=== PATIENT | female | born 1995 | race African-American/Black ===

== ENCOUNTER 2018-08-06 09:08 | Emergency (ER) | payer SELFPAY ==
[~2018-08-06] VITALS: Ht 149.9 cm; Wt 85.0 kg
[2018-08-06 09:55] VITALS: BP 128/63
== END 2018-08-06 10:37 | disposition home or self-care (01) ==
LOC: ER 09:21
DX: S05.12XA Contusion of eyeball and orbital tissues, left eye, initial encounter (principal); J45.909 Unspecified asthma, uncomplicated; F12.10 Cannabis abuse, uncomplicated; Y08.89XA Assault by other specified means, initial encounter; Y93.89 Activity, other specified; Y92.89 Other specified places as the place of occurrence of the external cause; Y99.8 Other external cause status
CPT/HCPCS: 81025; 99282

== ENCOUNTER 2020-07-07 19:58 | Inpatient (IN) | payer MEDICAID ==
[~2020-07-07] VITALS: Ht 144.8 cm; Wt 80.7 kg
[2020-07-07 21:26] LABS: CLARITY URINE CLEAR (CLEAR); COLOR URINE YELLOW (YELLOW); KETONES URINE 1+ (NEGATIVE); LEUKOCYTE ESTERASE URINE NEGATIVE (NEGATIVE); NITRITE URINE NEGATIVE (NEGATIVE); OCCULT BLOOD URINE 1+ (NEGATIVE); PROTEIN URINE NEGATIVE (NEGATIVE); SPECIFIC GRAVITY URINE 1.026 (1.005-1.030)
[2020-07-07 21:27] LABS: BASOPHILS % 0.2 % (0.0-2.0); EOSINOPHILS % 0.1 % (0.0-5.0); HEMATOCRIT. 35.9 % (36.0-48.0); HEMOGLOBIN. 12.1 g/dL (12.0-16.0); LYMPHOCYTES % 16.9 % (20.0-50.0); MEAN CORPUSCULAR HEMOGLOBIN 26.4 pg (28.0-32.0); MEAN CORPUSCULAR VOLUME 78.2 fL (81.0-99.0); MEAN PLATELET VOLUME 8.2 fl (7.4-10.4); MONOCYTES % 5.6 % (2.0-8.0); NEUTROPHILS % 77.2 % (40.0-76.0); PLATELET 240 x1000/uL (130-400); RED CELL DISTRIBUTION WIDTH 14.2 % (11.6-14.6)
[2020-07-07 23:55] LABS: *AMPHETAMINES SCREEN URINE NEGATIVE (NEGATIVE); *BARBITURATES SCREEN URINE NEGATIVE (NEGATIVE); *BENZODIAZEPINES SCREEN URINE NEGATIVE (NEGATIVE); *COCAINE SCREEN URINE NEGATIVE (NEGATIVE); METHADONE URINE SCREEN NEGATIVE (NEGATIVE)
[2020-07-07 23:56] LABS: OPIATES URINE SCREEN NEGATIVE (NEGATIVE); PHENCYCLIDINE URINE SCREEN NEGATIVE (NEGATIVE)
[2020-07-07 23:59] LABS: CANNABINOID URINE SCREEN PRESUMTIVE POSITIVE (NEGATIVE)
[2020-07-08] MEDS: LACTATED RINGERS 1,000 ML IV SCH ×2 (00:52→07:30)
[2020-07-08] MEDS ORDERED: PREN1TAB78 PO (01:01)
[2020-07-08 01:24] LABS: PARTIAL THROMBOPLASTIN TIME 29.1 sec (23.4-31.0); PROTHROMBIN TIME 10.3 sec (9.6-11.0)
[2020-07-08 01:37] LABS: HEPATITIS B SURFACE ANTIGEN NEGATIVE
[2020-07-08 09:15] LABS: BASOPHILS % 0.4 % (0.0-2.0); EOSINOPHILS % 0.2 % (0.0-5.0); HEMOGLOBIN. 11.4 g/dL (12.0-16.0); LYMPHOCYTES % 15.4 % (20.0-50.0); MEAN CORPUSCULAR HEMOGLOBIN 26.5 pg (28.0-32.0); MEAN CORPUSCULAR VOLUME 79.1 fL (81.0-99.0); MEAN PLATELET VOLUME 8.2 fl (7.4-10.4); MONOCYTES % 6.5 % (2.0-8.0); NEUTROPHILS % 77.5 % (40.0-76.0); PLATELET 226 x1000/uL (130-400); RED CELL DISTRIBUTION WIDTH 14.4 % (11.6-14.6)
[2020-07-08] MEDS ORDERED: BUTORPHANOL TARTRATE 2 MG/ML VIAL IV PRN (15:45)
[2020-07-08] MEDS: MISOPROSTOL 200MCG TABLET PO SCH (16:29)
[2020-07-08] MEDS ORDERED: DEXT 5%/LR + PITOCIN 20UNITS/L 1,000 ML IV ONE ×2 (18:15→18:39)
[2020-07-08] MEDS ORDERED: ONDANSETRON HCL 4MG/2ML INJ IV PRN (18:45)
[2020-07-08] MEDS ORDERED: IBUPROFEN 600MG TABLET PO PRN (18:45)
[2020-07-08] MEDS ORDERED: ACETAMINOPHEN 650MG SUPP PR PRN (18:45)
[2020-07-08] MEDS ORDERED: DEXT 5%/LR + PITOCIN 20UNITS/L 1,000 ML IV SCH (19:30)
[2020-07-09] VITALS: BP 108/64
[2020-07-09 00:19] VITALS: BP 108/64
[2020-07-09] MEDS: MISOPROSTOL 200MCG TABLET PO SCH ×2 (04:00→09:47)
[2020-07-09 07:24] LABS: BASOPHILS % 0.3 % (0.0-2.0); EOSINOPHILS % 0.3 % (0.0-5.0); HEMATOCRIT. 31.5 % (36.0-48.0); HEMOGLOBIN. 10.5 g/dL (12.0-16.0); LYMPHOCYTES % 16.1 % (20.0-50.0); MEAN CORPUSCULAR HEMOGLOBIN 26.5 pg (28.0-32.0); MEAN CORPUSCULAR VOLUME 79.3 fL (81.0-99.0); MONOCYTES % 4.5 % (2.0-8.0); NEUTROPHILS % 78.8 % (40.0-76.0); PLATELET 196 x1000/uL (130-400); RED BLOOD CELL COUNT 3.97 mill/uL (4.2-5.4); RED CELL DISTRIBUTION WIDTH 14.3 % (11.6-14.6)
[2020-07-09] MEDS ORDERED: IBUP-2029 PO (07:36)
[2020-07-09] MEDS ORDERED: FERR324T4 MT (07:36)
[2020-07-09 08:00] VITALS: BP 139/61
[2020-07-09 10:29] VITALS: BP 139/61
[2020-07-12 04:07] LABS: CANNABINOID CONFIRMATION URINE Positive (.)
== END 2020-07-09 11:30 | disposition home or self-care (01) | DRG 560 ==
LOC: 8 EST LDRP 19:58 → OBSVTOIN 19:58 → 8EST NSY 22:52 → 8 EST A/PP 22:55 → 8 EST LDRP 23:22 → 8WST 07-08 22:01
PROVIDERS: ADMIT Obstetrics & Gynecology; ATTEND Obstetrics & Gynecology
PROC: 10E0XZZ Delivery of Products of Conception, External Approach (ICD-10-PCS; principal; 2020-07-08)
DX: O03.4 Incomplete spontaneous abortion without complication (principal); O34.32 Maternal care for cervical incompetence, second trimester; D57.3 Sickle-cell trait; J45.909 Unspecified asthma, uncomplicated; F12.10 Cannabis abuse, uncomplicated; O99.322 Drug use complicating pregnancy, second trimester; O99.512 Diseases of the respiratory system complicating pregnancy, second trimester; O99.012 Anemia complicating pregnancy, second trimester; Z3A.21 21 weeks gestation of pregnancy; Z37.1 Single stillbirth
CPT/HCPCS: 36415; 76805; 80305; 80349; 81003; 85025; 86592; 86703; 86762; 86850; 86900; 87340; 88307; 99281; J0595; J2590; J7120

== ENCOUNTER 2021-01-27 19:09 | Emergency (ER) | payer MEDICAID ==
[~2021-01-27] VITALS: Ht 149.9 cm; Wt 86.0 kg
[~2021-01-27 19:09] MED LIST: FERR324T4 MT; IBUP-2029 PO; PREN1TAB78 PO
[2021-01-27 19:35] VITALS: BP 136/67
== END 2021-01-27 22:29 | disposition left against medical advice (07) ==
LOC: ER 19:09
DX: R10.9 Unspecified abdominal pain (principal); Z53.21 Procedure and treatment not carried out due to patient leaving prior to being seen by health care provider

== ENCOUNTER 2021-01-28 08:26 | Emergency (ER) | payer MEDICAID ==
[~2021-01-28] VITALS: Ht 172.7 cm; Wt 80.0 kg
[2021-01-28 09:52] LABS: BASOPHILS % 0.2 % (0.0-2.0); EOSINOPHILS % 0.3 % (0.0-5.0); HEMATOCRIT. 38.2 % (36.0-48.0); HEMOGLOBIN. 13.1 g/dL (12.0-16.0); LYMPHOCYTES % 17.4 % (20.0-50.0); MEAN CORPUSCULAR HEMOGLOBIN 25.9 pg (28.0-32.0); MEAN CORPUSCULAR VOLUME 75.4 fL (81.0-99.0); MEAN PLATELET VOLUME 7.7 fl (7.4-10.4); NEUTROPHILS % 76.1 % (40.0-76.0); PLATELET 265 x1000/uL (130-400); RED BLOOD CELL COUNT 5.07 mill/uL (4.2-5.4); RED CELL DISTRIBUTION WIDTH 15.9 % (11.6-14.6)
[2021-01-28 09:52] LABS: CLARITY URINE CLEAR (CLEAR); COLOR URINE YELLOW (YELLOW); KETONES URINE 2+ (NEGATIVE); LEUKOCYTE ESTERASE URINE NEGATIVE (NEGATIVE); NITRITE URINE NEGATIVE (NEGATIVE); OCCULT BLOOD URINE 1+ (NEGATIVE); PROTEIN URINE NEGATIVE (NEGATIVE); SPECIFIC GRAVITY URINE 1.014 (1.005-1.030)
[2021-01-28 09:55] LABS: CHLORIDE 107 mEq/L (98-107)
[2021-01-28 10:19] LABS: B-HCG QUANTITATIVE 61059 mIU/mL (<3)
[2021-01-28 13:09] VITALS: BP 135/92
== END 2021-01-28 13:11 | disposition home or self-care (01) ==
LOC: ER 08:26
DX: O20.0 Threatened abortion (principal); O26.891 Other specified pregnancy related conditions, first trimester; J45.909 Unspecified asthma, uncomplicated; O99.321 Drug use complicating pregnancy, first trimester; F12.90 Cannabis use, unspecified, uncomplicated; Z3A.10 10 weeks gestation of pregnancy
CPT/HCPCS: 36415; 76801; 80053; 81003; 81025; 84702; 85025; 86850; 86900; 99284

== ENCOUNTER 2021-08-29 22:57 | Emergency (ER) | payer MEDICAID ==
[2021-08-29] MEDS ORDERED: LIDOCAINE HCL 1% 10 MG/ML 10ML VIAL INJ NR (23:27)
[2021-08-29] MEDS ORDERED: BACITRACIN ZINC OINT UDPKT TOP ONE (23:30)
[2021-08-29] MEDS ORDERED: LIDOCAINE HCL/PF 1% 10 MG/ML 5ML VIAL INFIL ONE (23:30)
[2021-08-29] MEDS ORDERED: TETANUS, DIPHTHERIA, PERTUSSIS VAC/PF 0.5ML (>10YR OLD) IM ONE (23:30)
[2021-08-29] MEDS ORDERED: HYDROCODONE/ACETAMINOPHEN 5/325MG TABLET PO ONE (23:30)
[2021-08-30] MEDS ORDERED: CEPH500T MT (01:50)
[2021-08-30] MEDS ORDERED: HYDR-4001 MT (01:50)
[2021-08-30 01:51] VITALS: BP 126/83
== END 2021-08-30 01:57 | disposition home or self-care (01) ==
LOC: ER 22:57
DX: S62.638A Displaced fracture of distal phalanx of other finger, initial encounter for closed fracture (principal); X58.XXXA Exposure to other specified factors, initial encounter; Y93.89 Activity, other specified; Y92.89 Other specified places as the place of occurrence of the external cause; Y99.8 Other external cause status
CPT/HCPCS: 12001; 73130; 90471; 90715; 99284; J3490

== ENCOUNTER 2022-09-05 02:41 | Emergency (ER) | payer MEDICAID, OTHER ==
[~2022-09-05] VITALS: Ht 149.9 cm; Wt 95.5 kg
[~2022-09-05 02:41] MED LIST changes: +CEPH500T MT; +HYDR-4001 MT
[2022-09-05] MEDS ORDERED: IBUPROFEN 600MG TABLET PO ONE (03:15)
[2022-09-05] MEDS ORDERED: CEPHALEXIN 250MG CAPSULE PO ONE (04:30)
[2022-09-05] MEDS ORDERED: CEPH500C2 MT (04:35)
[2022-09-05] MEDS ORDERED: IBUP-2029 MT (04:35)
[2022-09-05] MEDS ORDERED: HYDR-4001 MT (04:35)
[2022-09-05 05:59] VITALS: BP 115/69
== END 2022-09-05 06:03 | disposition home or self-care (01) ==
LOC: ER 02:41
DX: S60.211A Contusion of right wrist, initial encounter (principal); S60.221A Contusion of right hand, initial encounter; J45.909 Unspecified asthma, uncomplicated; Y04.0XXA Assault by unarmed brawl or fight, initial encounter; Y93.89 Activity, other specified; Y92.89 Other specified places as the place of occurrence of the external cause; Y99.8 Other external cause status
CPT/HCPCS: 29125; 73110; 73130; 81025; 99284; L3670

== ENCOUNTER 2023-03-25 22:56 | Emergency (ER) | payer MEDICAID ==
[~2023-03-25] VITALS: Ht 149.9 cm; Wt 94.8 kg
[~2023-03-25 22:56] MED LIST changes: +CEPH500C2 MT; +IBUP-2029 MT
[2023-03-25 23:03] VITALS: BP 112/70; PULSE 96; RESP 16; TEMP 98; O2SAT 100
[2023-03-26] MEDS ORDERED: KETOROLAC 30MG/ML VIAL IM ONE
[2023-03-26] MEDS ORDERED: CYCL10TA21 MT (00:15)
[2023-03-26] MEDS ORDERED: NAPR-1176 MT (00:15)
[2023-03-26 00:52] LABS: CLARITY URINE CLOUDY (CLEAR); COLOR URINE YELLOW (YELLOW); GLUCOSE URINE NEGATIVE (NEGATIVE); KETONES URINE TRACE (NEGATIVE); LEUKOCYTE ESTERASE URINE NEGATIVE (NEGATIVE); NITRITE URINE NEGATIVE (NEGATIVE); OCCULT BLOOD URINE NEGATIVE (NEGATIVE); PH URINE 5.5 (4.5-8.0); PROTEIN URINE NEGATIVE (NEGATIVE); SPECIFIC GRAVITY URINE 1.022 (1.005-1.030)
[2023-03-26 00:55] LABS: BACTERIA URINE NONE SEEN; RBC URINE 0-2 /hpf (0-2); SQUAMOUS EPITHELIAL CELL URINE 1+ /lpf (RARE/1+); YEAST URINE NONE SEEN
== END 2023-03-26 02:56 | disposition home or self-care (01) ==
LOC: ER 22:56
DX: S20.219A Contusion of unspecified front wall of thorax, initial encounter (principal); S39.012A Strain of muscle, fascia and tendon of lower back, initial encounter; J45.909 Unspecified asthma, uncomplicated; V49.50XA Passenger injured in collision with unspecified motor vehicles in traffic accident, initial encounter; Y93.89 Activity, other specified; Y92.89 Other specified places as the place of occurrence of the external cause; Y99.8 Other external cause status
CPT/HCPCS: 81025; 71045; 93005; 99285; 81003; J1885; Z7610

== ENCOUNTER 2023-04-26 01:46 | Emergency (ER) | payer MEDICAID ==
[~2023-04-26] VITALS: Ht 149.9 cm; Wt 95.0 kg
[~2023-04-26 01:46] MED LIST changes: +CYCL10TA21 MT; +NAPR-1176 MT
[2023-04-26 01:51] VITALS: BP 110/59; PULSE 89; RESP 16; TEMP 98.2; O2SAT 98
[2023-04-26] MEDS ORDERED: CEPH500C2 MT (02:41)
== END 2023-04-26 05:19 | disposition home or self-care (01) ==
LOC: ER 01:46
DX: L03.116 Cellulitis of left lower limb (principal); J45.909 Unspecified asthma, uncomplicated
CPT/HCPCS: 99283

== ENCOUNTER 2024-02-13 17:28 | Emergency (ER) | payer MEDICAID ==
[~2024-02-13] VITALS: Ht 160 cm; Wt 60.0 kg
[2024-02-13 17:52] VITALS: O2SAT 99
[2024-02-13] MEDS: KETOROLAC 30MG/ML VIAL IM STA (20:00)
[2024-02-13] MEDS: ONDANSETRON HCL 4MG/2ML INJ IM STA (20:00)
[2024-02-13 20:10] LABS: BASOPHILS % 0.6 % (0.0-2.0); EOSINOPHILS % 1.6 % (0.0-5.0); HEMOGLOBIN. 12.5 g/dL (12.0-16.0); MEAN CORPUSCULAR HEMOGLOBIN 30.3 pg (28.0-32.0); MEAN CORPUSCULAR HGB CONC 33.8 g/dL (31.0-37.0); MEAN CORPUSCULAR VOLUME 89.8 fL (81.0-99.0); MEAN PLATELET VOLUME 7.9 fl (7.4-10.4); MONOCYTES % 8.7 % (2.0-8.0); NEUTROPHILS % 67.1 % (40.0-76.0); PLATELET 304 x1000/uL (130-400); RED BLOOD CELL COUNT 4.12 mill/uL (4.2-5.4); RED CELL DISTRIBUTION WIDTH 13.6 % (11.6-14.6); WHITE BLOOD COUNT 9.1 x1000/uL (4.5-11.0)
[2024-02-13 20:20] LABS: CHLORIDE 101 mEq/L (98-107); POTASSIUM 3.3 mEq/L (3.5-5.1); SODIUM 139 mEq/L (136-145)
[2024-02-13 20:21] LABS: CALCIUM 9.9 mg/dL (8.7-10.4); CARBON DIOXIDE 30 mEq/L (21-32)
[2024-02-13 20:26] LABS: CREATININE 0.7 mg/dL (0.6-1.0); GLUCOSE 93 mg/dL (70-105); UREA NITROGEN BLOOD 15 mg/dL (9-23)
[2024-02-13 20:53] LABS: CLARITY URINE CLEAR (CLEAR); COLOR URINE DARK YELLOW (YELLOW); GLUCOSE URINE NEGATIVE (NEGATIVE); KETONES URINE 3+ (NEGATIVE); LEUKOCYTE ESTERASE URINE 1+ (NEGATIVE); NITRITE URINE NEGATIVE (NEGATIVE); OCCULT BLOOD URINE 2+ (NEGATIVE); PROTEIN URINE 2+ (NEGATIVE); SPECIFIC GRAVITY URINE 1.029 (1.005-1.030)
[2024-02-13 21:23] LABS: BACTERIA URINE 1+; RBC URINE NONE SEEN /hpf (0-2); SQUAMOUS EPITHELIAL CELL URINE 1+ /lpf (RARE/1+)
[2024-02-13 22:00] VITALS: BP 122/75; PULSE 83; RESP 16; TEMP 36.94740; O2SAT 100
[2024-02-13] MEDS ORDERED: CEPH500C2 MT (22:13)
[2024-02-13] MEDS ORDERED: ONDA-239 PO (22:13)
[2024-02-13] MEDS ORDERED: NAPR-681 PO (22:13)
== END 2024-02-14 02:36 | disposition home or self-care (01) ==
LOC: ER 17:28
DX: J02.9 Acute pharyngitis, unspecified (principal); K12.2 Cellulitis and abscess of mouth; J45.909 Unspecified asthma, uncomplicated; Z79.899 Other long term (current) drug therapy; Z20.822 Contact with and (suspected) exposure to COVID-19
CPT/HCPCS: 80048; 81003; 81025; 87430; 85025; 87070; 87804 ×2; 36415; 71045; 96372; 99284; 87426; J1885; J2405; Z7610

== ENCOUNTER 2024-12-19 00:46 | Emergency (ER) | payer MEDICAID ==
[~2024-12-19] VITALS: Ht 149.9 cm; Wt 90.0 kg
[~2024-12-19 00:46] MED LIST changes: +NAPR-681 PO; +ONDA-239 PO
[2024-12-19 00:53] VITALS: O2SAT 99
[2024-12-19] MEDS: KETOROLAC 15MG/ML VIAL IM ONE (01:15)
[2024-12-19] MEDS ORDERED: LIDO-53 TP (02:27)
[2024-12-19] MEDS ORDERED: NAPR-1176 MT (02:27)
[2024-12-19] MEDS: ACETAMINOPHEN 500MG TABLET PO ONE (02:45)
[2024-12-19 02:55] VITALS: BP 111/54; PULSE 89; RESP 20; TEMP 37; O2SAT 98
== END 2024-12-19 03:11 | disposition home or self-care (01) ==
LOC: ER 00:46
DX: M25.572 Pain in left ankle and joints of left foot (principal); J45.909 Unspecified asthma, uncomplicated; Z79.1 Long term (current) use of non-steroidal anti-inflammatories (NSAID); Z79.899 Other long term (current) drug therapy
CPT/HCPCS: 81025; 73610; 96372; 99283; J1885; Z7610

== ENCOUNTER 2025-04-04 08:51 | Emergency (ER) | payer MEDICAID, OTHER ==
[~2025-04-04] VITALS: Ht 149.9 cm; Wt 90.0 kg
[~2025-04-04 08:51] MED LIST changes: +IBUP-1455 MT; +IBUP-1455 PO; -IBUP-2029 MT; -IBUP-2029 PO; +LIDO-53 TP
[2025-04-04 09:05] VITALS: O2SAT 100
[2025-04-04 09:55] LABS: CLARITY URINE CLOUDY (CLEAR); COLOR URINE YELLOW (YELLOW); PH URINE 5.5 (4.5-8.0); SPECIFIC GRAVITY URINE 1.024 (1.005-1.030)
[2025-04-04 09:56] LABS: GLUCOSE URINE NEGATIVE (NEGATIVE); PROTEIN URINE 1+ (NEGATIVE)
[2025-04-04 09:57] LABS: KETONES URINE 3+ (NEGATIVE); LEUKOCYTE ESTERASE URINE 2+ (NEGATIVE); NITRITE URINE NEGATIVE (NEGATIVE); OCCULT BLOOD URINE 1+ (NEGATIVE); UROBILINOGEN URINE 1.0 E.U./dL (0.2-1.0)
[2025-04-04 09:58] LABS: BASOPHILS % 0.2 % (0.0-2.0); EOSINOPHILS % 0.2 % (0.0-5.0); HEMATOCRIT. 46.3 % (36.0-48.0); HEMOGLOBIN. 15.1 g/dL (12.0-16.0); LYMPHOCYTES % 21.9 % (20.0-50.0); MEAN PLATELET VOLUME 7.7 fl (7.4-10.4); MONOCYTES % 7.7 % (2.0-8.0); NEUTROPHILS % 70.0 % (40.0-76.0); PLATELET 312 x1000/uL (130-400); RED BLOOD CELL COUNT 5.78 mill/uL (4.2-5.4); RED CELL DISTRIBUTION WIDTH 15.3 % (11.6-14.6)
[2025-04-04 10:06] LABS: SQUAMOUS EPITHELIAL CELL URINE 1+ /lpf (RARE/1+)
[2025-04-04 10:07] LABS: WBC URINE 15-25 /hpf (0-2)
[2025-04-04 10:08] LABS: RBC URINE 0-2 /hpf (0-2)
[2025-04-04 10:09] LABS: BACTERIA URINE 2+; YEAST URINE NONE SEEN
[2025-04-04 10:16] LABS: CREATININE 0.8 mg/dL (0.6-1.0); UREA NITROGEN BLOOD 8 mg/dL (9-23)
[2025-04-04 10:17] LABS: ASPARTATE AMINOTRANSFERASE 19 IU/L (<34)
[2025-04-04 10:18] LABS: BILIRUBIN DIRECT 0.2 mg/dL (<=3.0); BILIRUBIN TOTAL 0.7 mg/dL (0.1-1.0); PROTEIN TOTAL 8.5 g/dL (6.0-8.3)
[2025-04-04 10:24] LABS: HCG SCREEN NEGATIVE
[2025-04-04 10:26] LABS: *AMPHETAMINES SCREEN URINE NEGATIVE (NEGATIVE); *BARBITURATES SCREEN URINE NEGATIVE (NEGATIVE); *BENZODIAZEPINES SCREEN URINE NEGATIVE (NEGATIVE); *COCAINE SCREEN URINE NEGATIVE (NEGATIVE)
[2025-04-04 10:27] LABS: CANNABINOID URINE SCREEN PRESUMPTIVE POSITIVE (NEGATIVE); ECSTASY MDMA SCREEN URINE NEGATIVE (NEGATIVE); METHADONE URINE SCREEN NEGATIVE (NEGATIVE); OPIATES URINE SCREEN NEGATIVE (NEGATIVE); PHENCYCLIDINE URINE SCREEN NEGATIVE (NEGATIVE)
[2025-04-04] MEDS: LACTATED RINGERS 1,000 ML IV SCH (10:43)
[2025-04-04] MEDS: ONDANSETRON HCL 4MG/2ML INJ IV ONE (10:43)
[2025-04-04] MEDS ORDERED: CEFP200T13 MT (11:36)
[2025-04-04] MEDS ORDERED: ONDA-239 PO (11:36)
[2025-04-04 11:48] VITALS: BP 125/74; PULSE 88; RESP 18; TEMP 37.1; O2SAT 100
== END 2025-04-04 11:50 | disposition home or self-care (01) ==
LOC: ER 08:51
DX: N39.0 Urinary tract infection, site not specified (principal); R11.2 Nausea with vomiting, unspecified; J45.909 Unspecified asthma, uncomplicated; Z79.1 Long term (current) use of non-steroidal anti-inflammatories (NSAID); Z79.899 Other long term (current) drug therapy
CPT/HCPCS: 80076; 80305; 80048; 81003; 80320; 84703; 83690; 85025; 87086; 36415; 96361; 96374; 99283; J2405; Z7610 ×2; G0480